=== PATIENT | female | born 1995 | race Caucasian/White ===

== ENCOUNTER 2017-07-20 08:14 | Inpatient (IN) ==
[2017-07-20] MEDS ORDERED: BUTORPHANOL 1 MG/ML VIAL ONE (08:38)
[2017-07-20] MEDS ORDERED: MEPERIDINE 50 MG/1 ML VIAL IV PRN (08:50)
[2017-07-20] MEDS ORDERED: BUTORPHANOL 1 MG/ML VIAL IV PRN (08:50)
[2017-07-20] MEDS ORDERED: LIDOCAINE 1% 50 ML VIAL MISC INJ ONE (08:50)
[2017-07-20] MEDS ORDERED: ONDANSETRON 4 MG/2 ML VIAL IV PRN (08:50)
[2017-07-20 09:08] LABS: Basophils # 0.1 10*3/uL (0.0-0.2); Basophils % 0.2 % (0.0-0.8); Hematocrit 34.1 VOL% (35.7-47.0); Hemoglobin 11.2 GM/DL (12.0-16.0); Immature Granulocytes % 2.6 %; Immature Granulocytes Absolute 0.97 #; Lymphocytes # 0.5 10*3/uL (1.4-4.0); Lymphocytes % 1.2 % (21.3-54.2); Mean Corpuscular HGB Conc 32.8 GM/DL (32-36); Mean Corpuscular Hemoglobin 28 PG (27-34); Mean Corpuscular Volume 83.6 FL (87-102); Mean Platelet Volume 11.2 FL (9.6-12.0); Monocytes # 2.4 10*3/uL (0.11-0.8); Monocytes % 6.3 % (1.7-12.7); Neutrophils # 33.8 10*3/uL (1.4-7.4); Neutrophils % 89.7 % (38.7-73.9); Platelet Count 294 T/CUMM (130-400); Red Blood Count 4.08 MC/CUMM (3.8-5.5); Red Cell Distribution Width 14.3 % (9.3-17.3); White Blood Count 37.7 T/CUMM (4-12)
[2017-07-20] MEDS ORDERED: fentaNYL 2 MCG/ROPIV 0.2% EPID 150 ML EPIDURAL SCH (09:08)
[2017-07-20] MEDS ORDERED: ONDANSETRON 4 MG/2 ML VIAL IV ONE (09:08)
[2017-07-20] MEDS ORDERED: hydrOXYzine HCL 25 MG/1 ML VIAL IM PRN (09:08)
[2017-07-20] MEDS ORDERED: FAMOTIDINE 20 MG/2 ML VIAL IV ONE (09:08)
[2017-07-20] MEDS ORDERED: diphenhydrAMINE 50 MG/1 ML VIAL IV PRN ×2 (09:08)
[2017-07-20] MEDS ORDERED: CITRIC ACID/SODIUM CITRATE 30 ML UDCUP PO ONE (09:08)
[2017-07-20] MEDS ORDERED: ePHEDrine 50 MG/ML AMP IV PRN (09:08)
[2017-07-20] MEDS ORDERED: PROMETHAZINE 25 MG/1 ML VIAL IM ONE (09:08)
[2017-07-20] MEDS ORDERED: CITRIC ACID/SODIUM CITRATE 30 ML UDCUP ONE (09:13)
[2017-07-20] MEDS: LACTATED RINGERS 1,000 ML IV SCH ×2 (09:26→09:51)
[2017-07-20] MEDS ORDERED: OXYTOCIN/LR 20 UNIT/1,000 ML BAG IV SCH (09:30)
[2017-07-20 10:46] LABS: Band Neutrophils 13 % (0-10); Hypochromasia 1+; Lymphocytes 1 % (20-55); Metamyelocytes 1 %; Segmented Neutrophils 80 % (50-85); Total Cells Counted 100
[2017-07-20 10:47] LABS: Microcytosis 1+; Platelet Estimate Adequate
[2017-07-20] MEDS ORDERED: OXYTOCIN/LR 20 UNIT/1,000 ML BAG IV ONE (17:00)
[2017-07-21] MEDS ORDERED: IBUPROFEN 800 MG TABLET ONE (09:10)
[2017-07-21 10:01] LABS: Basophils # 0.1 10*3/uL (0.0-0.2); Basophils % 0.2 % (0.0-0.8); Eosinophils % 0.2 % (0.00-10.9); Hemoglobin 8.6 GM/DL (12.0-16.0); Immature Granulocytes Absolute 0.46 #; Lymphocytes # 1.9 10*3/uL (1.4-4.0); Lymphocytes % 8.3 % (21.3-54.2); Mean Corpuscular HGB Conc 33.1 GM/DL (32-36); Mean Corpuscular Hemoglobin 28 PG (27-34); Mean Corpuscular Volume 84.1 FL (87-102); Mean Platelet Volume 11.3 FL (9.6-12.0); Monocytes # 1.9 10*3/uL (0.11-0.8); Monocytes % 8.3 % (1.7-12.7); NRBC # 0.02 10*3/uL; Neutrophils # 18.2 10*3/uL (1.4-7.4); Platelet Count 233 T/CUMM (130-400); Red Blood Count 3.09 MC/CUMM (3.8-5.5); Red Cell Distribution Width 14.6 % (9.3-17.3); White Blood Count 22.5 T/CUMM (4-12)
[2017-07-21] MEDS ORDERED: DOCUSATE SODIUM 100 MG CAPSULE PO PRN (10:19)
[2017-07-21] MEDS ORDERED: IBUPROFEN 800 MG TABLET PO PRN (10:32)
[2017-07-21] MEDS: FERROUS SULFATE 325 MG TABLET PO SCH ×2 (10:40→22:37)
[2017-07-21 11:15] LABS: Band Neutrophils 3 % (0-10); Hypochromasia 2+; Lymphocytes 7 % (20-55); Microcytosis 1+; Platelet Estimate Adequate; Segmented Neutrophils 89 % (50-85); Total Cells Counted 100
[2017-07-22] MEDS ORDERED: BENZOCAINE 20%/MENTHOL 0.5% SPRAY 56 GM CAN TOP PRN (02:20)
[2017-07-22] MEDS ORDERED: HYDROCORTISONE 2.5% RECTAL CREAM 30 GM TUBE TOP PRN (02:40)
[2017-07-22] MEDS ORDERED: WITCH HAZEL PADS 100/JAR TOP PRN (02:40)
[2017-07-22 07:32] VITALS: BP 98/57
[2017-07-22] MEDS ORDERED: INFLUENZA VIRUS VACCINE 0.5 ML SYRINGE IM ONE (09:17)
[2017-07-22] MEDS: FERROUS SULFATE 325 MG TABLET PO SCH (09:37)
[2017-07-22] MEDS ORDERED: MEASLES/MUMPS/RUBELLA VACCINE 0.5 ML VIAL SUBCUT ONE (10:54)
[2017-07-22] MEDS ORDERED: DIPH/TET/ACEL PERT BOOSTER VACCINE 0.5 ML VIAL IM ONE (10:54)
== END 2017-07-22 14:05 | disposition home or self-care (01) | DRG 775 ==
LOC: N.LD 08:15 → N.LDOUT 08:25 → N.LD 08:31 → N.OB 16:00
PROVIDERS: ADMIT Obstetrics & Gynecology; ATTEND Obstetrics & Gynecology